=== PATIENT | male | born 1990 | race Caucasian/White ===

== ENCOUNTER 2020-02-07 01:43 | Emergency (ER) | payer OTHER ==
[~2020-02-07] VITALS: Ht 182.9 cm; Wt 99.8 kg
[2020-02-07 01:50] VITALS: Ht 182.9 cm; Wt 99.8 kg
[2020-02-07 02:31] VITALS: BP 145/79
== END 2020-02-07 02:31 | disposition home or self-care (01) ==
LOC: ED 01:43
DX: S61.411A Laceration without foreign body of right hand, initial encounter (principal); S60.222A Contusion of left hand, initial encounter; W25.XXXA Contact with sharp glass, initial encounter; Y93.89 Activity, other specified; Y92.89 Other specified places as the place of occurrence of the external cause; Y99.8 Other external cause status